=== PATIENT | female | born 1975 | race Caucasian/White ===

== ENCOUNTER 2019-01-28 22:12 | Inpatient (IN) | payer OTHER ==
[~2019-01-28] VITALS: Ht 165.1 cm; Wt 76.8 kg
[2019-01-28 22:16] VITALS: BP_SYST 159
--- NOTE | 2019-01-28 22:23 | NUR ---
Patient to ER bed 03 to gown for evaluation. Side rails up.
--- NOTE | 2019-01-28 22:25 | NUR ---
Pt brought in by friend and self. Pt awake, alert, oriented. Pt states that she has had new onset of Right lower quadrant pain today. Pt denies chest pain, nausea, vomiting, diarrhea, shortness of breath, or any other medical complaint at this time. Pt states that she is a habitual methanphetamine user and is currently in a program to help her quit. patient indicated that she last used methanphetamines at approx 3pm today. Pt states that she was constipated for the past 3-4 days, but had a bowel movement this morning. pt resting comfortably in ed bed, vss, given blanket for comfort, will continue to monitor.
[2019-01-28] MEDS ORDERED: NACL 0.9% 1,000 ML IV ONE (22:31)
[2019-01-28 22:43] LABS: BILIRUBIN,URINE 1+ (NEGATIVE); BLOOD, URINE 3+ (NEGATIVE); CLARITY/URINE HAZY (CLEAR); COLOR,URINE YELLOW (YELLOW); GLUCOSE,URINE NEGATIVE (NEGATIVE); KETONES,URINE NEGATIVE (NEGATIVE); LEUKOCYTE ESTERASE ,URINE 1+ (NEGATIVE); NITRITE, URINE NEGATIVE (NEGATIVE); PROTEIN URINE 1+ (NEGATIVE); UROBILINOGEN,URINE 0.2 (0.2-1.0)
[2019-01-28 22:48] LABS: BACTERIA,URINE FEW /HPF (None Seen); RBC,URINE >100 /HPF (0-3)
--- NOTE | 2019-01-28 22:48 | NUR ---
ER at bedside examining patient.
[2019-01-28 22:59] LABS: HEMATOCRIT 46.1 % (36-48); HEMOGLOBIN 15.8 g/dL (12.0-16.0); LYMPHOCYTES % (AUTO) 6.4 % (20.5-51.5); MEAN CORPUSCULAR HEMOGLOBIN 30 pg (27-31); MEAN CORPUSCULAR HGB CONC 34 % (32-36); MEAN CORPUSCULAR VOLUME 87 fL (79.0-98.0); NEUTROPHILS % (AUTO) 90.8 % (40.0-70.0); PLATELET COUNT (AUTO) 278 K/uL (130-430); RED CELL DISTRIBUTION WIDTH 14.7 % (9.0-15.0); WHITE BLOOD COUNT (AUTO) 15.1 K/uL (4.8-10.8)
[2019-01-28 23:00] LABS: BASOPHILS % (AUTO) 0.3 % (0.0-2.0); EOSINOPHILS % (AUTO) 0.2 % (0.0-4.0); MONOCYTES # (AUTO) 0.4 K/uL (0.0-1.0); MONOCYTES % (AUTO) 2.3 % (1.7-9.3); NEUTROPHILS # (AUTO) 13.7 K/uL (1.8-7.7)
[2019-01-28] MEDS ORDERED: ONDANSETRON HCL 4 MG/2 ML VIAL IVP ONE (23:00)
--- NOTE | 2019-01-28 23:02 | NUR ---
Pt reported that she is in a program for meth use. Her last time she used was 1500 today. ER made aware.
[2019-01-28 23:12] LABS: INR 0.8 (0.8-1.2)
[2019-01-28 23:13] LABS: PROTHROMBIN TIME 0.9 SECS (9.5-12.5)
[2019-01-28 23:22] LABS: POTASSIUM 3.8 mmol/L (3.5-5.1)
[2019-01-28 23:23] LABS: ALBUMIN 4.2 g/dL (3.4-4.8); CALCIUM 9.3 mg/dL (8.4-11.0); CREATININE 0.98 mg/dL (0.55-1.30); TOTAL BILIRUBIN 0.5 mg/dL (0.0-1.0)
[2019-01-28] MEDS ORDERED: cefTRIAXone 1 GM in D5W 50 ML IV ONE (23:45)
[2019-01-29] MEDS ORDERED: cefTRIAXone 1 GM VIAL ONE (00:21)
--- NOTE | 2019-01-29 00:21 | NUR ---
Pt resting in Bed, Alert, Oriented. Pt requested new blanket. Pt given warm blanket
--- NOTE | 2019-01-29 01:00 | NUR ---
Pt resting comfortably in bed, no signs of acute distress. Will cont. to monitor.
[2019-01-29] MEDS ORDERED: NACL 0.9% 1,000 ML IV ONE (01:45)
--- NOTE | 2019-01-29 02:50 | NUR ---
Spoke with and recieved orders to admit to M/S floor. Pt notified
[2019-01-29] MEDS ORDERED: MORPHINE 2 MG/ML INJ. SYRINGE IVP PRN (03:15)
[2019-01-29] MEDS ORDERED: ONDANSETRON HCL 4 MG/2 ML VIAL IVP PRN (03:15)
[2019-01-29] MEDS ORDERED: METOCLOPRAMIDE HCL 10 MG/2 ML VIAL IVP PRN (03:15)
--- NOTE | 2019-01-29 03:44 | NUR ---
ADMISSION NOTE Received patient from ER via gurney. Patient admitted with diagnosis of Kidney Stone. Patient is awake, alert, oriented X 4. Patient oriented to hospital room, call light, toileting, pain management and safety-teach back done. Patient informed that SACHIN Linares will be primary nurse and that their room number is 119B. Personal belongings checked and Belongings List documented. Call light within reach.
--- NOTE | 2019-01-29 03:45 | NUR ---
Transfer to [facility]. IV present no sign or symptom of infiltration.
[2019-01-29 03:53] VITALS: BP_SYST 115
--- NOTE | 2019-01-29 04:10 | NUR ---
INITIAL NOTES Patient is resting, no signs of acute respiratory distress. IVF running to Left AC, dressings c/d/i. No signs of inflammation or infiltration. Patient refuses bed alarm, patient education provided and verbalizes understanding. Bed at lowest position, call light within reach. Oriented patient to use of call light and plans of NPO. Will continue to monitor.
[2019-01-29] MEDS: NACL 0.9% 1,000 ML IV SCH ×4 (04:50→23:15)
--- NOTE | 2019-01-29 05:30 | NUR ---
Consultation Paged Reason for Consult: Urology Was consult called: Y Person who was notified: Marian Consulting Physician: Spencer Gilmore Yoghurt Maker Ordering Physician: Dr. Robison
--- NOTE | 2019-01-29 05:45 | NUR ---
Patient refuses check for the sacrum and buttocks for wound as well as taking pictures of sacrum. Patient states, "I don't want to show my butt, but I do have psoriasis there as well." Pictures for upper and lower extremities taken.
--- NOTE | 2019-01-29 07:31 | NUR ---
CLOSING NOTES Patient is resting, eyes closed. No shortness of breath observed. IVF running, dressings c/d/i. Endorsed care to SACHIN Morris. Patient still refused bed alarm, call light within reach, bed at lowest position. All needs met throughout shift.
--- NOTE | 2019-01-29 07:45 | NUR ---
OPENING NOTE RECEIVED PATIENT IN BED. STABLE. ALERT AND ORIENTED. DENIES PAIN AT THIS TIME. ROOM AIR. NO ACUTE DISTRESS. NO SOB. RESPIRATION EVEN AND UNLABORED. SKIN WARM AND DRY TO TOUCH. IV INTACT AND PATENT. SKIN WARM AND DRY TO TOUCH. DISCUSSED PLAN OF CARE WITH PATIENT; PT VERBALIZED UNDERSTANDING. PATIENT CONT NPO AT THIS TIME. ALL NEEDS MET. CALL LIGHT IN REACH. CONT TO MONITOR.
[2019-01-29 08:00] VITALS: BP_SYST 124
--- NOTE | 2019-01-29 10:00 | NUR ---
SEEN AND EXAMINED BY
[2019-01-29] MEDS: MORPHINE 4 MG/ML INJ. SYRINGE IVP PRN ×2 (10:19→20:51)
--- NOTE | 2019-01-29 10:20 | NUR ---
PAIN PATIENT C/O 9/10 RIGHT ABD PAIN RADIATING TO LEFT ABD. BP 116/72 HR 89. ADMINISTERED MORPHINE ORDERED, JAKOB WELL. TEACHING DONE. CONT TO MONITOR. CALL LIGHT IN REACH
[2019-01-29] MEDS: cefTRIAXone 1 GM IVPB PREMIX 50 ML IV SCH (11:17)
--- NOTE | 2019-01-29 12:00 | NUR ---
NOTE PATIENT RESTING IN BED AWAKE. STABLE. NO C/O PAIN AT THIS TIME. NO ACUTE DISTRESS. NO SOB. RESPIRATION EVEN AND UNLABORED. SKIN WARM AND DRY TO TOUCH. ALL NEEDS MET. CONT TO MONITOR
[2019-01-29 12:54] VITALS: BP_SYST 133
--- NOTE | 2019-01-29 12:58 | NUR ---
UROLOGY CONSULT CALLED AND STATED HE DOESNT ACCEPT PATIENT'S INSURANCE. MADE AWARE THAT DOESNT ACCEPT INSURANCE. WILL MAKE A LETTER OF AGREEMENT FOR TO SEE PATIENT. JUAN JOSE WILL FAX AGREEMENT TO . AWAITING FOR TO RECEIVE AGREEMENT; WILL FOLLOW UP WHEN OFFICE OPENS
--- NOTE | 2019-01-29 15:07 | NUR ---
Safety Investigator/Cause Analyst:SHEEP HERDER received a ref. from [facility]. SHEEP HERDER met with pt. who was friendly and able to participate in this interview. SHEEP HERDER felt pt. was honest as she disclosed the following. Pt is homeless and has been for at least the past 10 years. Pt. was caught by the police to be in possession of Meth. She was court ordered to participate in a drug program, [employer] (PC 100 classes). She has attended about 20 classes and has 2 classes left. Her last meth usage was yesterday prior to coming to the hospital. She stated she has been using meth since she was 14 years old. Pt. stated she stays in her car at her boyfreind, Joe Majano, also a drug user, driveway or in [facility]. Pt. stated she has a 19year old daughter,and a 30 year old son. Addendum: 01/29/19 at 1527 by Rosemarie Mares SHEEP HERDER Safety Investigator/Cause Analyst: Notes continued SHEEP HERDER asked pt. if she was connected with . Pt stated she does not want to harm self, but does feel axious and depressed. She stated she wants to get help.She is connected with [employer] in [place] and they helped her get apt. with [facility]. She has an apt. with [facility]. on Mar.19 at 10:30. If she has a Dx. Her understanding is that [facility] may be able to expedite housing for her. SHEEP HERDER shared with her resources such as homeless packet, substance abuse resource, Mental Health, , [facility]. SHEEP HERDER included a Homeless waiver in the packet as well as completed a homeless assessment.
--- NOTE | 2019-01-29 15:30 | NUR ---
NOTE PATIENT STABLE. RESTING IN BED. NOTED RISE/FALL CHEST. CALL LIGHT IN REACH. BED ALARM ON. CONT TO MONITOR
[2019-01-29 17:00] VITALS: BP_SYST 142
--- NOTE | 2019-01-29 17:00 | NUR ---
SPOKE TO AND REPORTED TO MD PATIENT STATED SHE HAS HX OF METH USE AND THAT SHE IS DEPRESSED AND ANXIOUS. RECEIVED ORDER FROM FOR CONSULT WITH (PSYCH) AND TO ORDER A URINE DRUG SCREEN; ORDER NOTED AND CARRIED OUT.
--- NOTE | 2019-01-29 17:39 | NUR ---
psychiatric consult spoke to umer fairbanks and made aware of psyche consult with .
--- NOTE | 2019-01-29 17:55 | NUR ---
URINE SAMPLE COLLECTED AND TAKEN TO LAB
[2019-01-29 18:07] LABS: METHAMPHETAMINES SCREEN,URINE POSITIVE (NEG <=500); OPIATE, URINE POSITIVE (NEG <=100); URINE AMPHETAMINE POSITIVE (NEG <=500)
[2019-01-29 18:08] LABS: BARBITURATE, URINE NEGATIVE (NEG <=200); BENZODIAZEPINE, URINE NEGATIVE (NEG <=150); CANNABINOID, URINE NEGATIVE (NEG <=50); COCAINE, URINE NEGATIVE (NEG <=150); PHENCYCLIDINE SCREEN,URINE NEGATIVE (NEG <=25); UR TRICYCLIC ANTIDEPRESSANTS NEGATIVE (NEG <=300); URINE METHADONE NEGATIVE (NEG <=200); URINE OXYCODONE SCREEN NEGATIVE (NEG <=100); URINE PROPOXYPHENE SCREEN NEGATIVE (NEG <=300)
--- NOTE | 2019-01-29 18:39 | NUR ---
CLOSING NOTE PATIENT AWAKE WATCHING TV. STABLE. NO C/O PAIN. NO ACUTE DISTRESS. NO SOB. SKIN WARM AND DRY TO TOUCH. IV INTACT AND PATENT; JAKOB IVF. ALL NEEDS MET. BED IN LOW AND LOCKED POSITION. SIDERAIL UPX2. REFUSE BED ALARM. CALL LIGHT IN REACH. CONT TO MONITOR
--- NOTE | 2019-01-30 00:30 | NUR ---
Nelson of Care Received handoff report from Cm at the bedside. Patient is resting comfortably in bed with eyes closed. No SOB, no acute distress, no signs of pain or facial grimacing at this time. Breathing is even and unlabored with visible chest rise and fall noted. IV site is intact, dressing is clean and dry. Bed is locked, in the lowest position, 2x side rails up, bed alarm is on. Call light is within reach.
[2019-01-30 00:32] VITALS: BP_SYST 118
--- NOTE | 2019-01-30 02:20 | NUR ---
Patient resting comfortably in bed, eyes closed. Breathing even and unlabored. No SOB, no acute distress, no signs of pain. Call light within reach. Stable.
[2019-01-30] MEDS: NACL 0.9% 1,000 ML IV SCH ×2 (02:26→11:32)
--- NOTE | 2019-01-30 05:28 | NUR ---
Patient eyes are closed. Resting comfortably in bed. Visible chest rise and fall noted, breathing even and unlabored. No SOB, no acute distress, no signs of pain or facial grimacing noted. IV site intact, dressing clean and dry, currently infusing IVF per MD order, see eMAR. Bed is locked, in the lowest position, 2x side rails up, bed alarm on. Call light within reach.
[2019-01-30 07:44] VITALS: BP_SYST 129
--- NOTE | 2019-01-30 07:45 | NUR ---
OPENING NOTES Patient received lying comfortably in her bed with respiration even and unlabored. Alert, awake and verbally responsive. Denies any pain or discomfort. IVF infusing well. Fall precaution observed. reinforced patient on NPO and importance of using call light, patient verbalized understanding. Bed alarm on, bed at lowest position. Call light within the reach. Will continue to monitor.
[2019-01-30 07:47] VITALS: BP_SYST 129
--- NOTE | 2019-01-30 07:49 | NUR ---
Closing Notes Handoff report given to oncoming dayshift nurse. Patient is resting comfortably in bed, AAOx4. No SOB, no acute distress, no signs of pain or facial grimacing noted at this time. IV site is intact, dressing clean and dry, saline locked. Bed is locked, in the lowest position, 2x side rails up, bed alarm is on. Call light is within reach. Fall, safety, and isolation precautions maintained. All needs have been met during this shift.
--- NOTE | 2019-01-30 09:00 | NUR ---
RN ROUND Patient remain to be alert, awake and verbally responsive. Denies any pain or discomfort, No nausea or vomiting. Call light within the reach.
--- NOTE | 2019-01-30 10:20 | NUR ---
Dr. Robison Rounds Seen and examined by Dr. Robison, will follow-up for any new orders.
[2019-01-30 10:35] LABS: BASOPHILS # (AUTO) 0.1 K/uL (0.0-0.2); BASOPHILS % (AUTO) 0.8 % (0.0-2.0); EOSINOPHILS # (AUTO) 0.1 K/uL (0.0-0.4); EOSINOPHILS % (AUTO) 1.3 % (0.0-4.0); HEMATOCRIT 38.6 % (36-48); HEMOGLOBIN 13.2 g/dL (12.0-16.0); LYMPHOCYTES # (AUTO) 1.7 K/uL (1.0-5.5); LYMPHOCYTES % (AUTO) 19.4 % (20.5-51.5); MEAN CORPUSCULAR HEMOGLOBIN 30 pg (27-31); MEAN CORPUSCULAR HGB CONC 34 % (32-36); MEAN CORPUSCULAR VOLUME 88 fL (79.0-98.0); MONOCYTES # (AUTO) 0.6 K/uL (0.0-1.0); MONOCYTES % (AUTO) 7.1 % (1.7-9.3); NEUTROPHILS # (AUTO) 6.4 K/uL (1.8-7.7); NEUTROPHILS % (AUTO) 71.4 % (40.0-70.0); PLATELET COUNT (AUTO) 212 K/uL (130-430); RED BLOOD CELL COUNT(AUTO) 4.37 MIL/uL (4.2-6.2); RED CELL DISTRIBUTION WIDTH 14.1 % (9.0-15.0); WHITE BLOOD COUNT (AUTO) 8.9 K/uL (4.8-10.8)
--- NOTE | 2019-01-30 10:47 | NUR ---
DC PLANNING: PER BED HUDDLE DISCUSSION IF PATIENT CAN BE TRANSFERRED TO CONTRACTED HOSPITAL FOR UROLOGY EVALUATION DUE TO UROLOGIST NOT CONTRACTED WITH PATIENT'S INSURANCE. CM DISCUSS WITH DR. CINTRON REGARDING UROLOGY CONSULT AND IF HE WOULD LIKE PATIENT TO BE TRANSFERRED TO CONTRACTED HOSPITAL. PER MD, HOLD OFF TO UROLOGY CONSULT AT THIS TIME PATIENT HAS NOT COMPLAIN OF PAIN, POSSIBLY HAD PASSED THE STONE OUT. MD WILL BE MONITORING PATIENT AT THIS TIME. SHUTTLE CAR OPERATOR WAS CONSULTED FOR DEPRESSION/ANXIETY. RENTAL MANAGER MADE AWARE.
[2019-01-30 10:49] LABS: CALCIUM 8.4 mg/dL (8.4-11.0); CHLORIDE 106 mmol/L (98-107); CREATININE 0.74 mg/dL (0.55-1.30); GLUCOSE 82 mg/dL (70-99); POTASSIUM 4.1 mmol/L (3.5-5.1); SODIUM SERUM 136 mmol/L (136-145); UREA NITROGEN, BLOOD 5 mg/dL (8-21)
--- NOTE | 2019-01-30 10:52 | NUR ---
Foreign Clerk Note Received consult order for patient from Dr Robison for anxiety and homelessness. Patient had been seen by Violeta ADKINS 01/29/19. Patient was evaluated and provided with all the necessary resources. ZULMA met with patient at bedside. Patient confirmed she has the homeless, mental health, and substance abuse a resources provided and has no questions. She admits to anxiety and depression but has no suicidal ideation. She has a mental health follow up appointment on 03/19/19 that she confirms she will attend. She confirmed she has been made aware of the suicide hotline. Patient has no other questions or concerns. ZULMA provided a business card and will remain available. Addendum: 01/30/19 at 1414 by Jessie Oneal LCSW Patient stated she does not need clothing. Provided meals while in the hospital.
[2019-01-30 10:55] LABS: ALANINE AMINOTRANSFERASE 17 U/L (12-78); ALBUMIN 2.9 g/dL (3.4-4.8); ASPARTATE AMINOTRANSFERASE 19 U/L (10-37); GFR AFRICAN AMERICAN 110 mL/min (>90); TOTAL BILIRUBIN 0.5 mg/dL (0.0-1.0)
[2019-01-30 10:56] LABS: ANION GAP < 3 (5-15)
[2019-01-30] MEDS: cefTRIAXone 1 GM IVPB PREMIX 50 ML IV SCH (11:30)
--- NOTE | 2019-01-30 12:09 | NUR ---
Dr. Robison paged regarding labs, MD asked to be informed of lab results prior to discharge home for patient.
--- NOTE | 2019-01-30 12:15 | NUR ---
Dr. Ricki smith of lab results Spoke with MD regarding lab results with new order okay to discharge once tolerating her diet.
[2019-01-30 12:22] VITALS: BP_SYST 133
--- NOTE | 2019-01-30 13:00 | NUR ---
Tolerated diet Patient tolerated diet, denies any abdominal discomfort, or nausea or vomiting. Able to consume > 50% of her meal. Call light within the reach.
[2019-01-30 15:17] VITALS: BP_SYST 138
== END 2019-01-30 15:50 | disposition home or self-care (01) | DRG 465 ==
LOC: SED 22:12 → SMU 01-29 03:04
PROVIDERS: ADMIT Internal Medicine Hospice and Palliative Medicine; ATTEND Internal Medicine Hospice and Palliative Medicine
DX: N20.0 Calculus of kidney (principal); F41.9 Anxiety disorder, unspecified; Z79.899 Other long term (current) drug therapy; Z88.5 Allergy status to narcotic agent
CPT/HCPCS: 36415; 80053; 80307; 81000-TC; 81025; 83605; 83690-TC; 85025; 85610-TC; 87040-TC; 87086; 96361; 96365; 96375; 99285; J0696; J2270; J2405; J7030

== ENCOUNTER 2021-06-22 00:26 | Emergency (ER) | payer OTHER ==
[~2021-06-22] VITALS: Ht 165.1 cm; Wt 65.8 kg
[2021-06-22 00:33] VITALS: BP_SYST 135
[2021-06-22] MEDS ORDERED: AMOX500T2 PO (00:55)
[2021-06-22] MEDS ORDERED: NAPR-690 PO (00:55)
[2021-06-22] MEDS ORDERED: KETOROLAC TROMETHAMINE 30 MG VIAL IM ONE (01:00)
[2021-06-22] MEDS ORDERED: AMOXICILLIN 500 MG CAPSULE PO ONE (01:00)
[2021-06-22 01:53] VITALS: BP_SYST 138
== END 2021-06-22 01:53 | disposition home or self-care (01) ==
LOC: SED 00:26
DX: K02.7 Dental root caries (principal); F17.200 Nicotine dependence, unspecified, uncomplicated; Z79.899 Other long term (current) drug therapy; Z88.6 Allergy status to analgesic agent
CPT/HCPCS: 96372; 99283; J1885